=== PATIENT | female | born 1995 | race Caucasian/White ===

== ENCOUNTER 2022-06-13 19:05 | Emergency (ER) | payer BC ==
[~2022-06-13] VITALS: Ht 162.6 cm; Wt 95.3 kg
[2022-06-13 19:08] VITALS: TEMP 98.2
[2022-06-13 19:33] LABS: PLATELET COUNT 230 K/uL (152-353)
[2022-06-13 19:41] LABS: POTASSIUM 3.8 mmol/L (3.6-5.2)
[2022-06-13] MEDS ORDERED: LEVE500T5 PO (19:45)
[2022-06-13] MEDS ORDERED: FLUOXETINE40 MG PO (19:46)
[2022-06-13] MEDS ORDERED: LAMOTRIGINE ER50 MG PO (19:46)
[2022-06-13 20:05] LABS: PARTIAL THROMBOPLASTIN TIME 29.5 SECONDS (24.5-33.6)
[2022-06-14 09:45] VITALS: BP 121/60
== END 2022-06-14 09:50 | disposition short-term general hospital (02) ==
LOC: EDBD 19:05 → ED 19:05
PROVIDERS: Emergency Medicine
PROC: 0T9B70Z Drainage of Bladder with Drainage Device, Via Natural or Artificial Opening (ICD-10-PCS; principal; 2022-06-13)
DX: G40.901 Epilepsy, unspecified, not intractable, with status epilepticus (principal)
CPT/HCPCS: 36415; 51702; 80053; 80307; 80320; 81000; 85027; 85610; 85730; 93005; 96360; 96361; 96365; 96366; 96375; 96376; 99285; J1953; J2060; J2250; J3490; Q2009